=== PATIENT | male | born 1950 | race Caucasian/White ===

== ENCOUNTER 2022-02-08 20:20 | Emergency (ER) | payer MEDICARE ==
[2022-02-08 22:03] LABS: BASOPHIL 0.8 % (0-2); HCT 48.4 % (42.0-52.0); HGB 16.5 g/dl (13.2-18.0); LYMPHOCYTE 19.5 % (15-48); MCH 33.3 pg (25.0-31.0); MCHC 34.1 g/dL (32.0-36.0); MCV 97.6 fL (78.0-100.0); MONOCYTE 4.7 % (0-12); MPV 9.2 fL (6.0-9.5); NEUTROPHIL 72.6 % (41-80); NRBC 0; PLT 285 K/uL (150-400); RBC 4.96 M/uL (4.70-6.00); RDW 13.3 % (11.5-14.0); WBC 11.2 K/uL (4.0-10.5)
[2022-02-08 22:20] LABS: ALBUMIN 3.4 g/dL (3.4-5.0); BILIRUBIN - TOTAL 0.5 mg/dL (0.2-1.0); BUN/CREAT RATIO (CALC) 13.7 RATIO; CREATININE 1.24 mg/dL (0.67-1.17); GLOBULIN (CALCULATION) 3.9 g/dL; POTASSIUM 3.7 mmol/L (3.5-5.1); TOTAL PROTEIN 7.3 g/dL (6.4-8.2)
[2022-02-08] MEDS ORDERED: BACTRIM DS TAB1 EACH PO (22:59)
[2022-02-08] MEDS ORDERED: CEPHALEXIN500 MG PO (22:59)
[2022-02-08] MEDS ORDERED: PRINIVIL10 MG PO (23:40)
== END 2022-02-08 23:35 | disposition home or self-care (01) ==
LOC: FER 20:20
PROVIDERS: Nurse Practitioner Family
DX: L03.032 Cellulitis of left toe (principal)
CPT/HCPCS: 36415; 80053; 85025; 99283; J7030